=== PATIENT | female | born 1970 | race Caucasian/White ===

== ENCOUNTER 2021-01-15 04:06 | Emergency (ER) | payer OTHER, MEDICAID ==
[~2021-01-15] VITALS: Ht 162.6 cm; Wt 80.0 kg
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
--- NOTE | 2021-01-15 04:40 | NUR ---
[employer] OFFICER Yrn BAINS AT BEDSIDE WITH PT.
--- NOTE | 2021-01-15 04:52 | NUR ---
PT AMBULATORY TO BATHROOM WITH THIS RN
--- NOTE | 2021-01-15 05:00 | NUR ---
PT TO CT
[2021-01-15 05:09] VITALS: BP 150/110
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
[2021-01-15] MEDS ORDERED: BACITRACIN ZINC OINT 500U/GM, 0.9 GM ONE (06:11)
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
== END 2021-01-15 06:38 | disposition home or self-care (01) ==
LOC: ED 06:35
DX: S06.0X0A Concussion without loss of consciousness, initial encounter (principal); S02.2XXA Fracture of nasal bones, initial encounter for closed fracture; S00.81XA Abrasion of other part of head, initial encounter; F10.120 Alcohol abuse with intoxication, uncomplicated; Y04.8XXA Assault by other bodily force, initial encounter; Y93.89 Activity, other specified; Y92.009 Unspecified place in unspecified non-institutional (private) residence as the place of occurrence of the external cause; Y99.8 Other external cause status; Y90.0 Blood alcohol level of less than 20 mg/100 ml
CPT/HCPCS: 70450; 70486; 99285